=== PATIENT | female | born 1975 | race Hispanic/Latino ===

== ENCOUNTER 2019-11-11 05:39 | Observation (INO) | payer BC, OTHER ==
[2019-11-04 10:20] LABS: BASOPHILS % (AUTO) 0.3 % (0.0-5.0); EOSINOPHILS % (AUTO) 0.9 % (0.0-8.0); HEMATOCRIT 35.1 % (36-48); LYMPHOCYTES % (AUTO) 29.3 % (21.0-51.0); MEAN CORPUSCULAR HEMOGLOBIN 24.4 pg (27.0-33.0); MEAN CORPUSCULAR HGB CONC 30.2 g/dL (32.0-36.0); MEAN CORPUSCULAR VOLUME 80.9 fL (79-99); MONOCYTES % (AUTO) 7.2 % (3.0-13.0); PLATELET COUNT (AUTO) 297 K/uL (130-400); RED BLOOD CELL COUNT(AUTO) 4.34 MIL/uL (4.00-5.50)
[2019-11-10 10:56] VITALS: BP 189/91
--- NOTE | 2019-11-10 14:59 | NUR ---
H/H INFORMED DR. ESME GUILLEN'S ASST OF ABNORMAL H/H. PER DR. VICTORIA , HOLD TWO UNITS OF PRBC'S FOR PROCEDURE
[2019-11-11] VITALS (23 sets, daily range): BP systolic 112–176; BP diastolic 71–104
[~2019-11-11] VITALS: Ht 162.6 cm; Wt 71.2 kg
[2019-11-11] MEDS: CEFAZOLIN SODIUM 1 GM VIAL IVP SCH ×2 (05:00→07:10)
[~2019-11-11 05:39] MED LIST: LACTATED RINGERS 1000ML 1,000 ML IV ONE
[2019-11-11] MEDS ORDERED: DEXAMETHASONE SOD PHOSPHATE 10MG/ML 1ML VIAL ONE (06:16)
[2019-11-11] MEDS ORDERED: SUCCINYLCHOLINE CHLORIDE 20 MG/ML 10 ML VIAL ONE ×3 (06:16→07:30)
[2019-11-11] MEDS ORDERED: NEOSTIGMINE 5MG/5ML SYR IV ONE (06:16)
[2019-11-11] MEDS ORDERED: PROPOFOL 10 MG/ML 20ML VIAL IV ONE (06:16)
[2019-11-11] MEDS ORDERED: ONDANSETRON HCL 4 MG/2 ML VIAL ONE (06:16)
[2019-11-11] MEDS ORDERED: GLYCOPYRROLATE 1 MG/5 ML SYRINGE ONE (06:16)
[2019-11-11] MEDS ORDERED: MIDAZOLAM HCL 1 MG/ML 2ML VIAL ONE (06:16)
[2019-11-11] MEDS ORDERED: LIDOCAINE PF 2% 5ML ABBOJECT ONE (06:16)
[2019-11-11] MEDS ORDERED: ROCURONIUM 10MG/1ML SYR 10 MG/ML ML ONE ×2 (06:17→07:29)
[2019-11-11] MEDS ORDERED: FENTANYL CITRATE PF 50 MCG/1 ML 2ML VIAL ONE ×3 (06:17→07:38)
[2019-11-11] MEDS ORDERED: ESMOLOL HCL 10 MG/ML 10 ML VIAL ONE (07:27)
--- NOTE | 2019-11-11 08:05 | NUR ---
CALLED DR VICTORIA'S OFFICE FOR H&P AND STAFF STATED SHE ALREADY FAXED H7P TO [facility] YESTERDAY, WILL FAX H&P AGAIN NOW.
--- NOTE | 2019-11-11 08:15 | NUR ---
SPOKE TO JERICHO FROM LAB AND MADE HER AWARE OF DUPLICATE ORDER TO HOLD 2 UNITS 2 PRBC FOR PROCEDURE AND SHE STATED SHE IS AWARE AND ONLY WORKED ON 2 UNITS.
[2019-11-11] MEDS ORDERED: MEPERIDINE-PF 25 MG/ML SYG ONE ×2 (09:23→09:34)
[2019-11-11] MEDS ORDERED: DOCUSATE SODIUM 100 MG CAP PO PRN (10:45)
[2019-11-11] MEDS ORDERED: ACETAMINOPHEN-CODEINE 300/30MG TAB PO PRN (10:45)
[2019-11-11] MEDS ORDERED: ONDANSETRON HCL 4 MG/2 ML VIAL IVP PRN (10:45)
[2019-11-11] MEDS ORDERED: PROMETHAZINE HCL 25 MG/ML 1ML AMPULE IM PRN (10:45)
[2019-11-11] MEDS ORDERED: BISACODYL 10 MG SUPP.RECT RC PRN (10:45)
[2019-11-11] MEDS ORDERED: IBUPROFEN 600 MG TABLET PO PRN (10:45)
[2019-11-11] MEDS ORDERED: SIMETHICONE 80 MG TAB.CHEW PO PRN (10:45)
[2019-11-11] MEDS: DEXTROSE 5 %-0.45 % NACL 1,000 ML IV PRN ×2 (11:09→19:46)
[2019-11-11] MEDS: PROMETHAZINE HCL 25 MG/ML 1ML AMPULE IM PRN ×2 (11:09→17:05)
[2019-11-11] MEDS: MEPERIDINE-PF 75 MG/ML SYG IM PRN ×2 (11:10→17:06)
[2019-11-12 00:05] VITALS: BP_SYST 112; BP_SYST 133; BP_DIAS 57; BP_DIAS 78
[2019-11-12] MEDS: PROMETHAZINE HCL 25 MG/ML 1ML AMPULE IM PRN (00:18)
[2019-11-12] MEDS: MEPERIDINE-PF 75 MG/ML SYG IM PRN (00:19)
[2019-11-12] MEDS: DEXTROSE 5 %-0.45 % NACL 1,000 ML IV PRN (03:42)
[2019-11-12 03:45] VITALS: BP 126/78
[2019-11-12 06:04] LABS: MEAN CORPUSCULAR HEMOGLOBIN 25.1 pg (27.0-33.0); MEAN CORPUSCULAR VOLUME 80.9 fL (79-99); PLATELET COUNT (AUTO) 271 K/uL (130-400); RED BLOOD CELL COUNT(AUTO) 3.83 MIL/uL (4.00-5.50); RED CELL DISTRIBUTION WIDTH 18.6 % (11.0-15.5); WHITE BLOOD COUNT (AUTO) 12.2 K/uL (4.8-10.8)
[2019-11-12 07:29] VITALS: BP 137/95
[2019-11-12] MEDS ORDERED: HYDROCODONE/ACETAMINOPHEN 5/325 MG TAB PO PRN (09:30)
[2019-11-12 11:19] VITALS: BP 142/95
[2019-11-12] MEDS ORDERED: IBUPROFEN 800 MG TAB PO PRN (13:00)
[2019-11-12] MEDS ORDERED: IBUPROFEN 800 MG TAB ONE (13:16)
--- NOTE | 2019-11-12 13:30 | NUR ---
DISCHARGE PT LEFT UNIT VIA WHEELCHAIR, ACCOMPANIED BY DAUGHTER. DENIED PAIN AND HAD NO COMPLAINTS. TRANSPORTED BY PERSONAL VEHICLE.
== END 2019-11-12 13:30 | disposition home or self-care (01) ==
LOC: DAH 05:39 → DAHIP 05:40 → WSH 10:10
PROVIDERS: ADMIT Obstetrics & Gynecology; ATTEND Obstetrics & Gynecology
DX: D25.9 Leiomyoma of uterus, unspecified (principal); Z20.828 Contact with and (suspected) exposure to other viral communicable diseases; N92.1 Excessive and frequent menstruation with irregular cycle; D64.9 Anemia, unspecified; N83.202 Unspecified ovarian cyst, left side; N83.201 Unspecified ovarian cyst, right side; K46.9 Unspecified abdominal hernia without obstruction or gangrene
CPT/HCPCS: 36415 ×3; 57268; 58552; 85025; 85027; 86850 ×2; 86900 ×2; 86901 ×2; 86923; 96360; 96361 ×2; 96372 ×2; A4215 ×2; A4221; A4222; A4223; A4344; A4510; A4600; A4606; A4649 ×2; A4663; A6260 ×2; C1769 ×2; C9803; G0378 ×20; J0330 ×3; J0690; J1100; J2001; J2175 ×5; J2250; J2405; J2550 ×3; J2704; J2710; J3010 ×3; J3490 ×2; J7120 ×2; U0003

== ENCOUNTER 2023-06-12 14:43 | Emergency (ER) | payer BC ==
[~2023-06-12] VITALS: Ht 160 cm; Wt 73.5 kg
[2023-06-12 14:49] VITALS: BP 146/88; PULSE 97; RESP 16
[2023-06-12 15:34] LABS: BASOPHILS # (AUTO) 0.02 K/uL (0.00-0.20); BASOPHILS % (AUTO) 0.4 % (0.0-5.0); EOSINOPHILS # (AUTO) 0.08 K/uL (0.00-0.70); EOSINOPHILS % (AUTO) 1.6 % (0.0-8.0); IMMATURE GRANULOCYTE ABSOLUTE 0.01 K/uL (0-1); MEAN CORPUSCULAR HEMOGLOBIN 32.5 pg (27.0-33.0); MEAN CORPUSCULAR VOLUME 95.5 fL (79-99); MONOCYTES # (AUTO) 0.4 K/uL (0.1-1.0); MONOCYTES % (AUTO) 7.3 % (3.0-13.0); NEUTROPHILS # (AUTO) 2.5 K/uL (1.8-7.7); NEUTROPHILS % (AUTO) 50.5 % (40.0-77.0); PLATELET COUNT (AUTO) 239 K/uL (130-400); RED BLOOD CELL COUNT(AUTO) 4.19 MIL/uL (4.00-5.50); RED CELL DISTRIBUTION WIDTH 12.3 % (11.0-15.5); WHITE BLOOD COUNT (AUTO) 4.9 K/uL (4.8-10.8)
[2023-06-12 15:43] LABS: CREATININE 0.9 mg/dL (0.5-1.0); POTASSIUM 3.4 mmol/L (3.5-5.1)
[2023-06-12 15:48] LABS: ALBUMIN 3.6 g/dL (3.5-5.0); BILIRUBIN,TOTAL 0.3 mg/dL (0.2-1.0); TOTAL PROTEIN, SERUM 6.9 g/dL (6.0-8.3)
== END 2023-06-12 18:52 | disposition left against medical advice (07) ==
LOC: EDH 14:43
DX: R07.89 Other chest pain (principal); E03.9 Hypothyroidism, unspecified; I10 Essential (primary) hypertension; Z90.710 Acquired absence of both cervix and uterus
CPT/HCPCS: 36415; 71045; 80053; 84484; 85025; 93005